=== PATIENT | female | born 1975 | race Caucasian/White ===

== ENCOUNTER 2023-04-04 16:13 | Emergency (ER) | payer OTHER, SELFPAY ==
[2023-04-04 16:36] VITALS: BP 149/90; PULSE 90; RESP 16; TEMP 36.9; O2SAT 100; BMI 24.6
--- NOTE | 2023-04-04 16:46 | XR_ITS ---
The [address] [address] Patient Name: GOLD NIETO MRN: [id number] date: 1975 Sex: F Assigned Patient Location: ER Current Patient Location: ED.MAIN Accession/Order Number: [id number] Exam Date: 04/04/2023 16:50 Report Date: 04/04/2023 17:15 At the request of: LUIS M ALEXANDER Procedure: XR foot RT min 3V EXAM: XR foot RT min 3V, XR ankle RT min 3V HISTORY: pain COMPARISON: None. TECHNIQUE: 3 views of the right ankle and foot there is no acute fracture or dislocation. The ankle mortise is normal. Talar dome is congruent. The soft tissue is unremarkable. XR/XR foot RT min 3V IMPRESSION: No acute fracture or dislocation. Electronically authenticated by: CHILO GARCIA Date: 04/04/2023 17:15
--- NOTE | 2023-04-04 16:46 | XR_ITS ---
The [address] [address] Patient Name: GOLD NIETO MRN: [id number] date: 1975 Sex: F Assigned Patient Location: ER Current Patient Location: ED.MAIN Accession/Order Number: [id number] Exam Date: 04/04/2023 16:50 Report Date: 04/04/2023 17:15 At the request of: LUIS M ALEXANDER Procedure: XR ankle RT min 3V EXAM: XR foot RT min 3V, XR ankle RT min 3V HISTORY: pain COMPARISON: None. TECHNIQUE: 3 views of the right ankle and foot there is no acute fracture or dislocation. The ankle mortise is normal. Talar dome is congruent. The soft tissue is unremarkable. XR/XR ankle RT min 3V IMPRESSION: No acute fracture or dislocation. Electronically authenticated by: CHILO GARCIA Date: 04/04/2023 17:15
--- NOTE | 2023-04-04 16:57 | PC.NURSE ---
foot and ankle swollen
--- NOTE | 2023-04-04 17:16 | ED_ITS ---
Documented by User: Heike Huang 04/04/23 17:18 HPI - General Adult General Chief complaint: Extremity Injury, Lower Stated complaint: LOWER EXTREMITY INJURY Time Seen by Provider: 04/04/23 16:29 Source: patient Mode of arrival: walk-in History of Present Illness HPI narrative: 47-year-old female presents with right lateral foot pain. She has ecchymosis and bruising noted the 4th and 5th digits. [place] twisted her ankle prior to arrival. She states she did take ibuprofen today. Alert and oriented acute distress no other injuries. No soft tissue swelling noted. Related Data Previous Rx's Medication Instructions Recorded ibuprofen 800 mg tablet 800 mg PO Q8H PRN pain #14 tabs 04/04/23 Allergies Allergy/AdvReac Type Severity Reaction Status Date / Time sulfamethoxazole Allergy Severe Verified 04/04/23 16:36 [From Bactrim] trimethoprim [From Bactrim] Allergy Severe Verified 04/04/23 16:36 Review of Systems ROS Narrative All Systems are negative except as noted/marked.All systems reviewed and otherwise negative Exam Narrative Exam Narrative: P Nurses note and vital signs reviewed and patient is not hypoxic. General: The patient appears well and in no apparent distress. Patient is resting comfortably on cart. Skin: Warm, dry, no pallor noted. There is no rash noted. Head: Normocephalic, atraumatic Eye: Normal conjunctiva, no drainage, EOMI. PERRL Ears, Nose, Mouth, and Throat: oral mucosa is moist. Nares patent. Mouth without vesicles. Ear canals patent. Tm's without Erythema Musculoskeletal: Lateral ecchymosis 4th and 5th digit.The patient has no evidence of calf tenderness, no pitting edema, symmetrical pulses noted bilate rally Neurological: A&O x4, normal speech Psychiatric: Cooperative Constitutional Vital Signs, click to edit/add: Last Vital Signs Temp 98.4 F 04/04/23 16:36 Pulse 90 04/04/23 16:36 Resp 16 04/04/23 16:36 BP 149/90 H 04/04/23 16:36 Pulse Ox 100 04/04/23 16:36 O2 Del Method Room Air 04/04/23 16:57 Course Vital Signs Vital signs: Vital Signs Temperature 98.4 F 04/04/23 16:36 Pulse Rate 90 04/04/23 16:36 Respiratory Rate 16 04/04/23 16:36 Blood Pressure 149/90 H 04/04/23 16:36 Pulse Oximetry 100 04/04/23 16:36 Oxygen Delivery Method Room Air 04/04/23 16:36 Temperature 98.4 F 04/04/23 16:36 Pulse Rate 90 04/04/23 16:36 Respiratory Rate 16 04/04/23 16:36 Blood Pressure 149/90 H 04/04/23 16:36 Pulse Oximetry 100 04/04/23 16:36 Oxygen Delivery Method Room Air 04/04/23 16:57 Medical Decision Making MDM Narrative Medical decision making narrative: She presented with chief complaint of right lateral foot bruising or ecchymosis. X-ray shows no fracture or dislocation. Patient be given Avery wrap postop shoe follow-up with orthopedics. Differential Diagnosis Differential Diagnosis: Foot fracture, foot sprain, ankle fracture ankle sprain Medical Records Medical records reviewed: Yes I reviewed the patient's medical records Imaging Data Foot, ankle: Attestation: I personally reviewed and interpreted this imaging study as follows: My impression: Negative Discharge Plan Discharge Chief Complaint: Extremity Injury, Lower Clinical Impression: Foot sprain Patient Disposition: Home, Self-Care Time of Disposition Decision: 17:14 Condition: Good Prescriptions / Home Meds: New ibuprofen 800 mg tablet 800 mg PO Q8H PRN (Reason: pain) Qty: 14 0RF Instructions: Foot Sprain (ED), Ice Pack Application (ED) Additional Instructions: follow up with dr Huffman Stand Alone Forms: Portal Instructions Referrals: JAMES WESLEY [Primary Care Provider] - 1 week Discharge Date/Time: 04/04/23 17:44 Documented by User: Mery Huynh MD 04/04/23 18:13 HPI - General Adult General Chief complaint: Extremity Injury, Lower Stated complaint: LOWER EXTREMITY INJURY Time Seen by Provider: 04/04/23 16:29 Related Data Previous Rx's Medication Instructions Recorded ibuprofen 800 mg tablet 800 mg PO Q8H PRN pain #14 tabs 04/04/23 Allergies Allergy/AdvReac Type Severity Reaction Status Date / Time sulfamethoxazole Allergy Severe Verified 04/04/23 16:36 [From Bactrim] trimethoprim [From Bactrim] Allergy Severe Verified 04/04/23 16:36 Exam Constitutional Vital Signs, click to edit/add: Last Vital Signs Temp 98.4 F 04/04/23 16:36 Pulse 90 04/04/23 16:36 Resp 16 04/04/23 16:36 BP 149/90 H 04/04/23 16:36 Pulse Ox 100 04/04/23 16:36 O2 Del Method Room Air 04/04/23 16:57 Course Vital Signs Vital signs: Vital Signs Temperature 98.4 F 04/04/23 16:36 Pulse Rate 90 04/04/23 16:36 Respiratory Rate 16 04/04/23 16:36 Blood Pressure 149/90 H 04/04/23 16:36 Pulse Oximetry 100 04/04/23 16:36 Oxygen Delivery Method Room Air 04/04/23 16:36 Temperature 98.4 F 04/04/23 16:36 Pulse Rate 90 04/04/23 16:36 Respiratory Rate 16 04/04/23 16:36 Blood Pressure 149/90 H 04/04/23 16:36 Pulse Oximetry 100 04/04/23 16:36 Oxygen Delivery Method Room Air 04/04/23 16:57 Medical Decision Making [facility] Narrative Medical decision making narrative: She presented with chief complaint of right lateral foot bruising or ecchymosis. X-ray shows no fracture or dislocation. Patient be given Avery wrap postop shoe follow-up with orthopedics. Attending physician attestation I have reviewed the mid-level documentation, agree with the documentation, medical decision making and treatment plan as outlined by the mid-level provider. Discharge Plan Discharge Chief Complaint: Extremity Injury, Lower Clinical Impression: Foot sprain Patient Disposition: Home, Self-Care Time of Disposition Decision: 17:14 Condition: Good Prescriptions / Home Meds: New ibuprofen 800 mg tablet 800 mg PO Q8H PRN (Reason: pain) Qty: 14 0RF Instructions: Foot Sprain (ED), Ice Pack Application (ED) Additional Instructions: follow up with dr Huffman Stand Alone Forms: Portal Instructions Referrals: JAMES WESLEY [Primary Care Provider] - 1 week Discharge Date/Time: 04/04/23 17:44
== END 2023-04-04 17:44 | disposition home or self-care (01) ==
PROVIDERS: Emergency Provider Emergency Medicine; PCP Family Medicine
DX: S93.601A Unspecified sprain of right foot, initial encounter (principal); X50.1XXA Overexertion from prolonged static or awkward postures, initial encounter; Y93.01 Activity, walking, marching and hiking
CPT/HCPCS: 73610; 73630; 99283